=== PATIENT | male | born 1955 | race African-American/Black ===

== ENCOUNTER 2017-10-18 12:59 | Emergency (ER) | payer OTHER ==
--- NOTE | 2017-10-18 13:50 | ER Document Report ---
ED Medical Screen (RME) - General Chief Complaint: Pedal Edema Stated Complaint: POSSIBLE BLOOD CLOT Time Seen by Provider: 10/18/17 13:39 Mode of Arrival: Ambulatory Information source: Patient Notes: 62-year-old male presents from the [place] with concerns of lower extremity bilateral swelling of 2 month duration. Patient admits shortness of breath I have greeted and performed a rapid initial assessment of this patient. A comprehensive ED assessment and evaluation of the patient, analysis of test results and completion of the medical decision making process will be conducted by additional ED providers. PHYSICAL EXAMINATION: GENERAL: Well-appearing, well-nourished and in no acute distress. HEAD: Atraumatic, normocephalic. EYES: Pupils equal round extraocular movements intact, conjunctiva are normal. ENT: Nares patent NECK: Normal range of motion LUNGS: No respiratory distress Musculoskeletal: 3+ pitting edema bilateral lower extremities NEUROLOGICAL: Normal speech, normal gait. PSYCH: Normal mood, normal affect. SKIN: Warm, Dry, normal turgor, no rashes or lesions noted. TRAVEL OUTSIDE OF THE [place] IN LAST 30 DAYS: No - Related Data Allergies/Adverse Reactions: No Known Allergies Allergy (Verified 10/18/17 13:00) Past Medical History - Social History Chew tobacco use (# tins/day): No Frequency of alcohol use: None Drug Abuse: None Renal/ Medical History: Denies: Hx Peritoneal Dialysis GI Medical History: Reports: Hx Hiatal Hernia Musculoskeltal Medical History: Reports Hx Arthritis Psychiatric Medical History: Reports: Hx Depression Past Surgical History: Reports: Hx Abdominal Surgery - Immunizations Hx Diphtheria, Pertussis, Tetanus Vaccination: Yes Physical Exam - Vital signs Vitals: Temp Pulse Resp BP Pulse Ox 97.5 F 88 18 159/95 H 99 10/18/17 13:03 10/18/17 13:03 10/18/17 13:03 10/18/17 13:03 10/18/17 13:03 Course - Vital Signs Vital signs: Temp Pulse Resp BP Pulse Ox 97.5 F 88 18 159/95 H 99 10/18/17 13:03 10/18/17 13:03 10/18/17 13:03 10/18/17 13:03 10/18/17 13:03
--- NOTE | 2017-10-18 14:15 | ER Document Report ---
ED General - General Chief Complaint: Pedal Edema Stated Complaint: POSSIBLE BLOOD CLOT Time Seen by Provider: 10/18/17 13:39 Mode of Arrival: Ambulatory Notes: The patient is a 62-year-old male who presents with 2 months of increasing bilateral leg swelling and edema. He had mild shortness of breath and chest pain during these episodes. No history of CHF and he is not on diuretics. He denies injury, history of cancer, hemoptysis, fevers, cough, abdominal pain, nausea, vomiting, numbness or tingling. TRAVEL OUTSIDE OF THE [place] IN LAST 30 DAYS: No - Related Data Allergies/Adverse Reactions: No Known Allergies Allergy (Verified 10/18/17 13:00) Past Medical History - General Information source: Patient - Social History Smoking Status: Former Smoker Chew tobacco use (# tins/day): No Frequency of alcohol use: None Drug Abuse: None Family History: Reviewed & Not Pertinent Patient has suicidal ideation: No Patient has homicidal ideation: No Renal/ Medical History: Denies: Hx Peritoneal Dialysis GI Medical History: Reports: Hx Hiatal Hernia Musculoskeltal Medical History: Reports Hx Arthritis Psychiatric Medical History: Reports: Hx Depression Past Surgical History: Reports: Hx Abdominal Surgery - Immunizations Hx Diphtheria, Pertussis, Tetanus Vaccination: Yes Review of Systems - Review of Systems Notes: REVIEW OF SYSTEMS: CONSTITUTIONAL: -fevers, -chills EENT: -eye pain, -difficulty swallowing, -nasal congestion CARDIOVASCULAR: +chest pain, -syncope. RESPIRATORY: -cough, +SOB GASTROINTESTINAL: -abdominal pain, -nausea, -vomiting, -diarrhea GENITOURINARY: -dysuria, -hematuria MUSCULOSKELETAL: -back pain, -neck pain SKIN: -rash or skin lesions. HEMATOLOGIC: -easy bruising or bleeding. LYMPHATIC: -swollen, enlarged glands. NEUROLOGICAL: -altered mental status or loss of consciousness, -headache, - neurologic symptoms PSYCHIATRIC: -anxiety, -depression. ALL OTHER SYSTEMS REVIEWED AND NEGATIVE. Physical Exam - Vital signs Vitals: Temp Pulse Resp BP Pulse Ox 97.5 F 88 18 159/95 H 99 10/18/17 13:03 10/18/17 13:03 10/18/17 13:03 10/18/17 13:03 10/18/17 13:03 - Notes Notes: PHYSICAL EXAMINATION: GENERAL: Well-appearing, well-nourished and in no acute distress. HEAD: Atraumatic, normocephalic. EYES: Pupils equal round and reactive to light, extraocular movements intact, sclera anicteric, conjunctiva are normal. ENT: nares patent, oropharynx clear without exudates. Moist mucous membranes. NECK: Normal range of motion, supple without lymphadenopathy LUNGS: Breath sounds clear to auscultation bilaterally and equal. No wheezes rales or rhonchi. HEART: Regular rate and rhythm without murmurs ABDOMEN: Soft, nontender, normoactive bowel sounds. No guarding, no rebound. No masses appreciated. EXTREMITIES: 3+ pitting edema up to knees. Normal range of motion. No cyanosis. NEUROLOGICAL: Cranial nerves grossly intact. Normal speech, normal gait. Normal sensory and motor exams. PSYCH: Normal mood, normal affect. SKIN: Warm, Dry, normal turgor, no rashes or lesions noted. Course - Re-evaluation Re-evalutation: Patient arrives from the [place] clinic after 2 months of peripheral edema. Ultrasound does not show any evidence of DVT and patient does not have pulmonary vascular congestion or an elevated proBNP to suggest CHF. He did have a low albumin and does admit to not eating as much as he normally does. Patient provided with some albumin due to some third spacing. He also has a leukocytosis, but no evidence of infection. His leg swelling has no evidence of necrotizing fasciitis or cellulitis. He also is slightly hypokalemic and hypocalcemic. He also has slightly elevated creatinine, but no old values to compare this to. He was slowly repleted with potassium and told to follow-up with his primary care physician for further evaluation and treatment. Offered patient admission for further evaluation and workup, but he feels better and is requesting discharge with outpatient follow-up. Given very strict return precautions and he understands. - Vital Signs Vital signs: Temp Pulse Resp BP Pulse Ox 97.5 F 88 17 119/96 H 100 10/18/17 13:03 10/18/17 13:03 10/18/17 17:31 10/18/17 17:31 10/18/17 17:31 - Laboratory Result Diagrams: 10/18/17 14:19 10/18/17 14:19 Laboratory results interpreted by me: 10/18/17 10/18/17 10/18/17 14:19 14:19 14:19 WBC 14.4 H RBC 3.82 L Hgb 10.7 L Hct 31.5 L RDW 14.8 H Plt Count 536 H Absolute Neutrophils 10.4 H Potassium 3.0 L* Chloride 113 H Carbon Dioxide 19 L Creatinine 1.72 H Est GFR ( Amer) 49 L Est GFR (Non-Af Amer) 41 L Glucose 59 L Calcium 7.0 L* Total Bilirubin < 0.1 L ALT 95 H Alkaline Phosphatase 138 H Creatine Kinase 762 H Total Protein 5.3 L Albumin 1.7 L Urine Ascorbic Acid 40 H - Diagnostic Test Radiology reviewed: Image reviewed, Reports reviewed Radiology results interpreted by me: CXR: NAD B/L DVT US: No DVTs. - EKG Interpretation by Me EKG shows normal: Sinus rhythm, [place], Intervals, QRS Complexes, ST-T Waves Rate: Normal Discharge - Discharge Clinical Impression: Peripheral edema, Hypokalemia, Renal insufficiency Condition: Stable Disposition: HOME, SELF-CARE Additional Instructions: Your ultrasound does not show any evidence of blood clots in your legs. Your potassium was also slightly low. You should follow-up with your primary care physician for a recheck of your blood work and symptoms. Keep your legs elevated and use compression stockings. Edema, Peripheral You have swelling in your legs. This is called peripheral edema. It can be caused by "leaky capillaries," inflammation, disease of the leg veins, or excess salt and water in your body. Edema may be a sign of heart, kidney, or liver disease. A medical evaluation can determine if there is a serious underlying cause for your edema. Avoid prolonged standing. If you must sit for a long time, occasionally get up and walk around or elevate your legs. Support stockings can be helpful in limiting swelling. Often diuretic or water pills are used to remove excess salt and water from your body. Call the doctor or return if you develop increased swelling, pain, or redness, shortness of breath, chest pain, or any other significant change. HYPOKALEMIA: You have an abnormally decreased level of serum potassium. Hypokalemia may cause weakness, fatigue, or heart rhythm abnormalities. Sometimes there are no symptoms at all. Usually, low serum potassium is due to taking diuretics ( water pills). It can also be due to excessive vomiting or diarrhea. If no obvious cause is evident, further evaluation will be necessary. Treatment is usually oral potassium supplements. Take these exactly as prescribed. You may also want to select foods which are naturally high in potassium -- fruits (such as bananas, cantaloupe, grapes, oranges, prunes, tomatoes), fresh vegetables (potatoes, spinach, beans, peas), orange or tomato juice, tomato pasta sauce, milk, fish (halibut, tuna, salmon, wilton) A follow-up blood test is usually performed to assure that the potassium is returning to normal. Call the physician if you suffer severe weakness, muscle twitching or cramping, palpitations (pounding or irregular heartbeat), or any other new or alarming symptoms. POTASSIUM: A potassium-containing medication has been prescribed. This is usually used to treat potassium depletion caused by diuretics or by vomiting and diarrhea. This type of medicine is available in many forms, including elixirs, powders, fruity drinks, and pills. If one type is not working out for you, another can be substituted. Potassium can cause stomach upset. This can be prevented by taking it with meals. Do not take more than your doctor recommends. Notify your doctor if you develop repeated vomiting, black or bloody stool , severe weakness or numbness. FOODS HIGH IN POTASSIUM: baked potato with skin 1080 mg tomato pasta sauce, 1 cup 940 sweet potato with skin 690 orange juice, 1 cup 480 belgian chard 480 tuna, 3 oz 480 cantaloupe, 1 cup 430 banana 420 spinach 420 yogurt, plain, nofat, 6 oz 400 milk, 1 cup 370 watermelon, 2 cups 340 tomato, 1/2 cup 210 Other foods high in potassium are most other fruits and vegetables and fish. FOLLOW-UP CARE: If you have been referred to a physician for follow-up care, call the physician s office for an appointment as you were instructed or within the next two days. If you experience worsening or a significant change in your symptoms, notify the physician immediately or return to the Emergency Department at any time for re-evaluation. Forms: Elevated Blood Pressure Referrals: ANTHONY BURGER MD [ACTIVE STAFF] - Follow up as needed
[2017-10-18 14:33] LABS: ABSOLUTE BASOPHILS # (AUTO) 0.1 10^3/uL (0.0-0.2); ABSOLUTE EOSINOPHILS # (AUTO) 0.2 10^3/uL (0.0-0.6); ABSOLUTE LYMPHOCYTES (AUTO) 2.7 10^3/uL (0.5-4.7); ABSOLUTE MONOCYTES (AUTO) 1.1 10^3/uL (0.1-1.4); ABSOLUTE NEUT (AUTO) 10.4 10^3/uL (1.7-8.2); BASOPHILS % (AUTO) 0.4 % (0-2); EOSINOPHILS % (AUTO) 1.4 % (0-6); HEMATOCRIT 31.5 % (37.9-51.0); HEMOGLOBIN 10.7 g/dL (13.5-17.0); LYMPHOCYTES % (AUTO) 18.5 % (13-45); MEAN CORPUSCULAR VOLUME 82 fl (80-97); MONOCYTES % (AUTO) 7.7 % (3-13); PLATELET COUNT 536 10^3/uL (150-450); RED BLOOD COUNT 3.82 10^6/uL (4.35-5.55); RED CELL DISTRIBUTION WIDTH 14.8 % (11.5-14.0); TOTAL CELLS COUNTED % (AUTO) 100 %; WHITE BLOOD COUNT 14.4 10^3/uL (4.0-10.5)
[2017-10-18 14:51] LABS: ALANINE AMINOTRANSFERASE 95 U/L (21-72); ALBUMIN 1.7 g/dL (3.5-5.0); ALKALINE PHOSPHATASE 138 U/L (38-126); ANION GAP 7 (5-19); ASPARTATE AMINO TRANSFERASE 57 U/L (17-59); BLOOD UREA NITROGEN 18 mg/dL (7-20); CARBON DIOXIDE 19 mmol/L (22-30); CHLORIDE 113 mmol/L (98-107); CREATINE KINASE 762 U/L (55-170); GLUCOSE 59 mg/dL (75-110); SODIUM 139.1 mmol/L (137-145); TOTAL PROTEIN 5.3 g/dL (6.3-8.2)
[2017-10-18 14:53] LABS: BILIRUBIN,TOTAL < 0.1 mg/dL (0.2-1.3)
[2017-10-18] MEDS ORDERED: POTASSIUM CHLORIDE 10 MEQ TABLET.SA PO ONE (14:59)
[2017-10-18] MEDS ORDERED: NORMAL SALINE 500 ML IV ONE (14:59)
[2017-10-18 15:03] LABS: NT PRO BNP 425 pg/mL (5-900)
[2017-10-18 15:04] LABS: TROPONIN I < 0.012 ng/mL
--- NOTE | 2017-10-18 15:14 | RADIOLOGY REPORT (SQ) ---
EXAM DESCRIPTION: VENOUS BILATERAL LOWER COMPLETED DATE/TIME: 10/18/2017 3:04 pm REASON FOR STUDY: bilateral venous doppler edema COMPARISON: None. TECHNIQUE: Dynamic and static shell scale and color images acquired of both lower extremity venous sy stems. Selected spectral images acquired with additional compression and augmentation maneuvers. Imag es stored on PACS. LIMITATIONS: None. FINDINGS: RIGHT LEG COMMON FEMORAL AND FEMORAL: Normal phasicity, compression and augmentation. No visualized echogenic m aterial on shell scale. No defects on color images. POPLITEAL: Normal compression and augmentation. No visualized echogenic material on shell scale. No de fects on color images. CALF VESSELS: Normal compression and augmentation. No visualized echogenic material on shell scale. No defects on color image. GSV AND SSV: Normal compression. No visualized echogenic material on shell scale. No defects on color images. ANY DEEP VENOUS INSUFFICIENCY: Not evaluated. ANY EVIDENCE OF POPLITEAL CYST: No. OTHER: No other significant finding. LEFT LEG COMMON FEMORAL AND FEMORAL: Normal phasicity, compression and augmentation. No visualized echogenic m aterial on shell scale. No defects on color images. POPLITEAL: Normal compression and augmentation. No visualized echogenic material on shell scale. No de fects on color images. CALF VESSELS: Normal compression and augmentation. No visualized echogenic material on shell scale. No defects on color images. GSV AND SSV: Normal compression. No visualized echogenic material on sehll scale. No defects on color images. ANY DEEP VENOUS INSUFFICIENCY: Not evaluated. ANY EVIDENCE POPLITEAL CYST: No. OTHER: No other significant finding. IMPRESSION: NO EVIDENCE DVT OR SVT IN EITHER LEG. TECHNICAL DOCUMENTATION: JOB ID: [id number] [employer]- All Rights Reserved Reading location - IP/workstation name: [email or web address]
--- NOTE | 2017-10-18 15:15 | RADIOLOGY REPORT (SQ) ---
EXAM DESCRIPTION: CHEST 2 VIEWS COMPLETED DATE/TIME: 10/18/2017 3:06 pm REASON FOR STUDY: peripheral edema COMPARISON: None. EXAM PARAMETERS: NUMBER OF VIEWS: two views TECHNIQUE: Digital Frontal and Lateral radiographic views of the chest acquired. RADIATION DOSE: NA LIMITATIONS: none FINDINGS: LUNGS AND PLEURA: No opacities, masses or pneumothorax. No pleural effusion. MEDIASTINUM AND HILAR STRUCTURES: No masses or contour abnormalities. HEART AND VASCULAR STRUCTURES: Heart normal size. No evidence for failure. BONES: No acute findings. HARDWARE: None in the chest. OTHER: No other significant finding. IMPRESSION: NO ACUTE RADIOGRAPHIC FINDING IN THE CHEST. TECHNICAL DOCUMENTATION: JOB ID: [id number] [employer]- All Rights Reserved Reading location - IP/workstation name: [email or web address]
[2017-10-18] MEDS: ALBUMIN HUMAN 50 ML IV SCH ×2 (15:30→15:43)
[2017-10-18 15:53] LABS: APPEARANCE,URINE CLEAR; BILIRUBIN,URINE NEGATIVE (NEGATIVE); CALCIUM OXALATE CRYSTALS,URINE FEW /HPF; COLOR,URINE YELLOW; GLUCOSE, URINE NEGATIVE (NEGATIVE); KETONES,URINE NEGATIVE (NEGATIVE); LEUKOCYTE ESTERASE,URINE NEGATIVE (NEGATIVE); NITRITE,URINE NEGATIVE (NEGATIVE); PROTEIN,URINE NEGATIVE (NEGATIVE); URINE SPECIFIC GRAVITY 1.015; UROBILINOGEN,URINE NEGATIVE mg/dL (<2.0)
[2017-10-18] MEDS ORDERED: ACETAMINOPHEN 325 MG TABLET PO ONE (16:17)
[2017-10-18 17:38] VITALS: BP 119/96
--- NOTE | 2017-10-18 18:34 | EKG REPORT ---
SEVERITY:- NORMAL ECG - SINUS RHYTHM : Confirmed by: Carlitos Pineda MD 18-Oct-2017 18:33:31
== END 2017-10-18 17:39 | disposition home or self-care (01) ==
LOC: ER 12:59
DX: R60.9 Edema, unspecified (principal); E87.6 Hypokalemia; N28.9 Disorder of kidney and ureter, unspecified; Z87.891 Personal history of nicotine dependence
CPT/HCPCS: 93005; 99285; 96365; 36415; 82550; 85025; 80053; 81001; 84484; 83880; 93970; 71046; 93010; P9047; J7040

== ENCOUNTER 2017-11-19 01:17 | Emergency (ER) | payer OTHER ==
[2017-11-19] MEDS ORDERED: ONDANSETRON HCL INJ/PF 4 MG/2 ML SDV IV ONE (02:11)
[2017-11-19] MEDS ORDERED: MORPHINE SULFATE 10 MG/ML INJ IV ONE (02:12)
[2017-11-19] MEDS ORDERED: ONDANSETRON 4 MG TAB.RAPDIS PO ONE (02:25)
--- NOTE | 2017-11-19 02:45 | ER Document Report ---
ED General <PRATEEK,CLEO - Last Filed: 11/19/17 08:44> - General TRAVEL OUTSIDE OF THE U.S. IN LAST 30 DAYS: No <LEESA DOBBS - Last Filed: 11/19/17 23:10> - General Chief Complaint: Leg Swelling Stated Complaint: LEG/FOOT SWELLING Time Seen by Provider: 11/19/17 02:01 Notes: Patient is a pleasant 62-year-old male who presents with complaint of diarrhea. Patient does have history of Crohn's disease. He said previous surgery for this. He says this feels nothing like Crohn's. He said his neighbor gave him some food and after eating it he had a few episodes diarrhea and felt nausea. Says he has little bit of crampy abdominal pain but is mild. He says his other complaint is that he has had swelling and edema in his lower extremities for several months now. He was seen here a month ago and had ultrasounds which were negative. At that time his lab work showed that he had hypoalbuminemia and maybe this is why he is having the edema. He denies any history of alcohol use. He denies any history of any liver issues. He says that his doctor the [place] has been doing workup but he is unsure what his results have shown. He says that he does get more testing when he moved to [place]. He is actually leaving tomorrow to move to [place]. He denies any blood in stool. He denies any fevers. Denies any chest pain or shortness of breath. He has no history of CHF. He has no other complaints at this time. He does take furosemide but says he has not been taking his supplemental potassium with it. (LEESA DOBBS) - Related Data Allergies/Adverse Reactions: No Known Allergies Allergy (Verified 11/19/17 03:19) Past Medical History - Social History Smoking Status: Unknown if Ever Smoked Frequency of alcohol use: None Drug Abuse: None Family History: Reviewed & Not Pertinent Renal/ Medical History: Denies: Hx Peritoneal Dialysis GI Medical History: Reports: Hx Hiatal Hernia Musculoskeltal Medical History: Reports Hx Arthritis Psychiatric Medical History: Reports: Hx Depression Past Surgical History: Reports: Hx Abdominal Surgery - Immunizations Hx Diphtheria, Pertussis, Tetanus Vaccination: Yes <LEESA DOBBS - Last Filed: 11/19/17 23:10> Review of Systems <CLEO CHANDRA - Last Filed: 11/19/17 08:44> <LEESA DOBBS - Last Filed: 11/19/17 23:10> - Review of Systems Notes: My Normal Review Basic REVIEW OF SYSTEMS: CONSTITUTIONAL : Denies fever, chills, or sweats. Denies recent illness. EENT: Denies eye, ear, throat, or mouth pain or symptoms. Denies nasal or sinus congestion. CARDIOVASCULAR: Denies chest pain. RESPIRATORY: Denies cough, cold, or chest congestion. Denies shortness of breath, difficulty breathing, or wheezing. GASTROINTESTINAL: Mild crampy abdominal pain. some nausea and diarrhea. GENITOURINARY: Denies difficulty urinating, painful urination, burning, frequency, or blood in urine. MUSCULOSKELETAL: Leg edema SKIN: Denies rash or skin lesions. NEUROLOGICAL: Denies altered mental status or loss of consciousness. Denies headache. Denies weakness or paralysis or loss of use of either side. Denies problems with gait or speech. Denies sensory or motor loss. ALL OTHER SYSTEMS REVIEWED AND NEGATIVE. (LEESA DOBBS) Physical Exam <CLEO CHANDRA - Last Filed: 11/19/17 08:44> <LEESA DOBBS - Last Filed: 11/19/17 23:10> - Vital signs Vitals: Temp Pulse Resp BP Pulse Ox 98.1 F 76 18 137/84 H 100 11/19/17 01:34 11/19/17 01:34 11/19/17 01:34 11/19/17 01:34 11/19/17 01:34 - Notes Notes: General Appearance: Well nourished, alert, cooperative, no acute distress, mild obvious discomfort. Well-appearing Vitals: reviewed, See vital signs table. Head: no swelling or tenderness to the head Eyes: PERRL, EOMI, Conjuctiva clear Mouth: No decreasd moisture Lungs: No wheezing, No rales, No rhonci, No accessory muscle use, good air exchange bilaterally. Heart: Normal rate, Regular rythm, No murmur, no rub Abdomen: Normal BS, soft, No rigidity, No reproducible abdominal tenderness to palpation, No guarding, no rebound, no organomegaly. Patient has large ventral surgical scar on abdomen that he says is related to crohn's disease. Extremities: strength 5/5 in all extremities, good pulses in all extremities, no swelling or tenderness in the extremities, 3+ bilateral lower extremity edema. Skin: warm, dry, appropriate color, no rash Neuro: speech clear, oriented x 3, normal affect, responds appropriately to questions. (LEESA DOBBS) Course - Laboratory Result Diagrams: 11/19/17 02:35 11/19/17 02:35 <CLEO CHANDRA - Last Filed: 11/19/17 08:44> - Laboratory Result Diagrams: 11/19/17 02:35 11/19/17 02:35 <LEESA DOBBS - Last Filed: 11/19/17 23:10> - Re-evaluation Re-evalutation: 11/19/17 08:44 Urinalysis does not show any signs of gross proteinuria. Patient otherwise been resting comfortably here in the ER. Will discharge patient home patient is to continue with his home medications as well as the prescribed medications by initial provider. Patient states understanding and the need for close follow -up. (CLEO CHANDRA) 11/19/17 23:08 Patient's urinalysis does not show any evidence of protein. He does not show any evidence of liver dysfunction and that his INR is normal. His liver enzymes are normal. His ultrasound of his liver does not show any concerning findings such as fatty liver. I therefore suspect do not suspect nephrotic syndrome nor liver abnormality causing his hypoalbuminemia. I suspect this most likely is related to his Crohn's disease. I talked to patient length about this. Patient is moving tomorrow to [place]. [facility] [place]. Down all the information and my impression his discharge instructions told him he should take this with him to his doctor. Also print off his lab results to take with him. Also place the discharge instructions to return to the nearest ER immediately if he has difficulty breathing, worsening swelling, or if he feels that he is worse in any way. Dictation of this chart was performed using voice recognition software; therefore, there may be some unintended grammatical errors. (LEESA DOBBS) - Vital Signs Vital signs: Temp Pulse Resp BP Pulse Ox 98.2 F 88 17 124/72 97 11/19/17 09:32 11/19/17 09:32 11/19/17 09:32 11/19/17 09:32 11/19/17 09:32 - Laboratory Laboratory results interpreted by me: 11/19/17 11/19/17 11/19/17 02:35 02:35 07:45 WBC 10.9 H RBC 3.27 L Hgb 9.3 L Hct 27.0 L RDW 15.9 H Potassium 2.9 L* Chloride 116 H Carbon Dioxide 18 L BUN 26 H Creatinine 2.04 H Est GFR ( Amer) 41 L Est GFR (Non-Af Amer) 33 L Calcium 6.8 L* Magnesium 1.2 L* Total Protein 5.2 L Albumin 1.7 L Urine Blood SMALL H Discharge <CLEO CHANDRA - Last Filed: 11/19/17 08:44> <LEESA DOBBS - Last Filed: 11/19/17 23:10> - Discharge Clinical Impression: Hypoalbuminemia, Lower extremity edema Diarrhea Qualifiers: Diarrhea type: unspecified type Qualified Code(s): R19.7 - Diarrhea, unspecified Condition: Good Disposition: HOME, SELF-CARE Additional Instructions: Please bring your lab results to your doctor in [place]. I suspect you are losing albumin (protein) through your bowel. This will sometimes happen in people who have Crohns. The low albumin level is why you have the large amount of swelling in your legs.Please follow up immediately with a GI physician and your [facility] and discuss this with them. Please go to the nearest ER immediately if you have bloody stools, vomiting, fever,s severe abdominal pain, difficulty breathing, or feel that you are worsening. It is imperative that you take the supplemental potassium. If you do not take it your potassium level will continue to be low and this could lead to heart arrythmias or . Please take the supplemental magnesium as well. Prescriptions: Magnesium Oxide 400 mg PO DAILY #14 tablet Potassium Chloride [K-Tab ER] 20 meq PO DAILY #30 tablet.er
[2017-11-19 02:47] LABS: ABSOLUTE EOSINOPHILS # (AUTO) 0.2 10^3/uL (0.0-0.6); ABSOLUTE LYMPHOCYTES (AUTO) 2.2 10^3/uL (0.5-4.7); ABSOLUTE MONOCYTES (AUTO) 0.8 10^3/uL (0.1-1.4); ABSOLUTE NEUT (AUTO) 7.7 10^3/uL (1.7-8.2); BASOPHILS % (AUTO) 0.3 % (0-2); EOSINOPHILS % (AUTO) 1.4 % (0-6); HEMOGLOBIN 9.3 g/dL (13.5-17.0); MEAN CORPUSCULAR HEMOGLOBIN 28.5 pg (27.0-33.4); MEAN CORPUSCULAR HGB CONC 34.5 g/dL (32.0-36.0); MEAN CORPUSCULAR VOLUME 83 fl (80-97); MONOCYTES % (AUTO) 7.6 % (3-13); PLATELET COUNT 405 10^3/uL (150-450); RED BLOOD COUNT 3.27 10^6/uL (4.35-5.55); RED CELL DISTRIBUTION WIDTH 15.9 % (11.5-14.0); SEGMENTED NEUTROPHILS % (AUTO) 70.7 % (42-78); TOTAL CELLS COUNTED % (AUTO) 100 %; WHITE BLOOD COUNT 10.9 10^3/uL (4.0-10.5)
[2017-11-19 03:08] LABS: INTERNATIONAL RATION (INR) 1.08; PROTHROMBIN TIME 14.6 SEC (11.4-15.4)
[2017-11-19 03:16] LABS: ALANINE AMINOTRANSFERASE 69 U/L (21-72); ALBUMIN 1.7 g/dL (3.5-5.0); ALKALINE PHOSPHATASE 123 U/L (38-126); ANION GAP 7 (5-19); ASPARTATE AMINO TRANSFERASE 56 U/L (17-59); BILIRUBIN,DIRECT 0.2 mg/dL (0.0-0.4); BILIRUBIN,TOTAL 0.2 mg/dL (0.2-1.3); BLOOD UREA NITROGEN 26 mg/dL (7-20); CARBON DIOXIDE 18 mmol/L (22-30); CHLORIDE 116 mmol/L (98-107); GLUCOSE 88 mg/dL (75-110); SODIUM 141.4 mmol/L (137-145); TOTAL PROTEIN 5.2 g/dL (6.3-8.2)
[2017-11-19 03:31] LABS: CALCIUM 6.8 mg/dL (8.4-10.2)
[2017-11-19 03:32] LABS: POTASSIUM 2.9 mmol/L (3.6-5.0)
[2017-11-19] MEDS ORDERED: POTASSIUM CHLORIDE 10 MEQ TABLET.SA PO ONE (03:56)
[2017-11-19] MEDS ORDERED: POTASSI CL 20 MEQ/50 ML RIDER 20 MEQ/50 ML RTUPB IV ONE (03:57)
--- NOTE | 2017-11-19 04:56 | RADIOLOGY REPORT (SQ) ---
EXAM DESCRIPTION: US ABDOMEN DOPPLER LIMITED CLINICAL HISTORY: 62 years Male, look at liver, hypoalbuminea Comparison: None. LIMITATIONS: None. FINDINGS: 1.1 cm gallstone, negative sonographic Seymour's test, liver, a 0.4-cm diameter common bile duct, no intrahepatic ductal dilation, 10-cm right kidney, pancreas, visualized vasculature/abdominal aorta, and no significant ascites appear otherwise unremarkable. IMPRESSION: No acute findings. Cholelithiasis.
[2017-11-19] MEDS: MAGNESIUM SULFATE/D5W 1 GM/100 ML RTUPB IV SCH ×3 (05:56→08:09)
[2017-11-19 08:03] LABS: APPEARANCE,URINE CLEAR; BILIRUBIN,URINE NEGATIVE (NEGATIVE); COLOR,URINE STRAW; GLUCOSE, URINE NEGATIVE (NEGATIVE); KETONES,URINE NEGATIVE (NEGATIVE); LEUKOCYTE ESTERASE,URINE NEGATIVE (NEGATIVE); NITRITE,URINE NEGATIVE (NEGATIVE); PROTEIN,URINE NEGATIVE (NEGATIVE); URINE SPECIFIC GRAVITY 1.005; UROBILINOGEN,URINE NEGATIVE mg/dL (<2.0)
[2017-11-19 09:33] VITALS: BP 124/72
== END 2017-11-19 09:36 | disposition home or self-care (01) ==
LOC: ER 01:17
DX: E88.09 Other disorders of plasma-protein metabolism, not elsewhere classified (principal); R60.0 Localized edema; T50.3X6A Underdosing of electrolytic, caloric and water-balance agents, initial encounter; Z91.128 Patient's intentional underdosing of medication regimen for other reason; Z91.14 Patient's other noncompliance with medication regimen; Z79.899 Other long term (current) drug therapy; R19.7 Diarrhea, unspecified; R11.0 Nausea; R10.9 Unspecified abdominal pain; Z87.19 Personal history of other diseases of the digestive system
CPT/HCPCS: 99285; 96375; 96365; 96366; 96367; 36415; 83735; 85025; 85610; 80053; 81001; 76705; 93976; S0119; J2270; J3475; J3480